=== PATIENT | female | born 1995 | race Caucasian/White ===

== ENCOUNTER 2017-05-17 14:37 | Emergency (ER) | payer BC ==
[~2017-05-17] VITALS: Ht 152.4 cm; Wt 49.7 kg
[2017-05-17 14:39] VITALS: TEMP 36.7; Ht 152.4 cm; Wt 49.7 kg
--- NOTE | 2017-05-17 15:05 | EMERGENCY ROOM VISIT NOTE ---
History Report prepared by Jonathan: Last Junior Under the Supervision of: Dr. Pedro Brown D.O. First contact with patient: 14:47 Chief Complaint: OTHER COMPLAINT Stated Complaint: PAIN DURING SEX, MISSED PERIOD 2 MTHS, ABN BLEEDIN History of Present Illness The patient is a 21 year old female who presents to the Emergency Room with complaints of pelvic pain that began 2 weeks ago. She has a past medical history of kidney stones. She has been noticing this pain that begins during and after intercourse. Two days ago, she had her latest round of intercourse and her pain worsened and began radiating into her lower back. Her pain does not worsen with exertion or movement. She notes that she has not had her period for 2 months, but she got an irregular period yesterday morning. She denies any fever, nausea, vomiting, diarrhea, rectal bleeding, or hematuria. Today, she saw an SHEET METAL SUPERINTENDENT who examined her and gave her a full gynecologic workup. They gave her blood tests, urine tests, and a pelvic examination that looked normal. However, she was in pain during the pelvic exam. They said they ruled out everything gynecologic and thought it could be a kidney stone. They then sent her to the ER. She is currently taking control and is using condoms. Her only surgical procedure was a lithotripsy for a kidney stone. The last time she had anything to eat or drink was 2 hours ago. Source of History: patient Onset: 2 weeks ago Position: other (Pelvic) Symptom Intensity: moderate Quality: ache Timing: constant Modifying Factors (Worsening): other ([place]) Associated Symptoms: + back pain, No fevers, No nausea, No vomiting, No hematochezia, No diarrhea, No urinary symptoms Review of Systems See HPI for pertinent positives & negatives. A total of 10 systems reviewed and were otherwise negative. Past Medical & Surgical Surgical Problems: (1) History of lithotripsy (2) Kidney stone Family History Kidney stones Social History Smoking Status: Current Every Day Smoker Smokeless Tobacco Use: No Drug Use: none Marital Status: single Occupation Status: student Current/Historical Medications Scheduled Norethin Acet & Estrad-Fe (Loestrin Fe 07/21), 1 TAB PO DAILY Allergies Coded Allergies: No Known Allergies (Verified , 05/17/17) Physical Exam Vital Signs Date Time Temp Pulse Resp B/P (MAP) Pulse Ox O2 Delivery O2 Flow Rate FiO2 05/17/17 17:52 70 18 102/54 98 05/17/17 16:06 76 18 103/58 98 Room Air 05/17/17 15:20 80 05/17/17 14:39 36.7 94 16 114/75 97 Room Air Physical Exam GENERAL: Patient is awake, alert, and in no acute distress. Patient is resting comfortably and showing no signs of anxiety EYES: The conjunctivae are clear. The pupils are round and reactive. EARS, NOSE, MOUTH AND THROAT: The nose is without any evidence of any deformity. Mucous membranes are moist tongue is midline NECK: The neck is nontender and supple. RESPIRATORY: Normal respiratory effort is noted there is no evidence of wheezing rhonchi or rales CARDIOVASCULAR: Regular rate and rhythm noted there no murmurs rubs or gallops normal S1 normal S2 GASTROINTESTINAL: The abdomen is soft and nondistended. Bowel sounds are present in all quadrants. There is bilateral suprapubic tenderness to palpation. No guarding or rigidity appreciated. MUSCULOSKELETAL/EXTREMITIES: There is no evidence of gross deformity full range of motion is noted in the hips and shoulders SKIN: There is no obvious evidence of any rash. There are no petechiae, pallor or cyanosis noted. NEUROLOGIC: Patient is awake alert and oriented x3. Medical Decision & Procedures ER Provider Diagnostic Interpretation: Radiology results as stated below per my review and radiologist interpretation: ABDOMEN AND PELVIS CT WITH IV AND ORAL CONTRAST CT DOSE: 249.14 mGy.cm HISTORY: lower abdominal pain, sent by SHEET METAL SUPERINTENDENT for CT TECHNIQUE: Multiaxial CT images of the abdomen and pelvis were performed following the use of intravenous and oral contrast. A dose lowering technique was utilized adhering to the principles of ALARA. COMPARISON STUDY: Abdominal ultrasound 01/23/2014. FINDINGS: The lung bases are clear. No pneumoperitoneum. No pneumatosis. The liver, spleen, gallbladder, adrenal glands, and pancreas are unremarkable. No retroperitoneal lymphadenopathy. There are few small bilateral renal calculi. Dominant stone within the left kidney measures 4 mm. No hydronephrosis. A 1.3 cm hypodense lesion within the upper pole the right kidney. This was demonstrated to be a cyst on the prior ultrasound. Normal bladder, uterus, and ovaries. The visualized appendix within the right lower quadrant appears to be normal in caliber. This measures up to 5 mm. No bowel wall thickening or obstruction. IMPRESSION: 1. No bowel wall thickening or obstruction. 2. Normal appendix. 3. Bilateral nephrolithiasis. No hydronephrosis. Electronically signed by: Grant Frederick M.D. 05/17/2017 5:37 PM Dictated Date/Time: 05/17/2017 5:25 PM Laboratory Results 05/17/17 15:00 Red Blood Count 4.07, Mean Corpuscular Volume 92.6, Mean Corpuscular Hemoglobin 30.2, Mean Corpuscular Hemoglobin Concent 32.6, Mean Platelet Volume 11.2, Neutrophils (%) (Auto) 57.1, Lymphocytes (%) (Auto) 36.4, Monocytes (%) (Auto) 4.6, Eosinophils (%) (Auto) 1.4, Basophils (%) (Auto) 0.3, Neutrophils # (Auto) 3.62, Lymphocytes # (Auto) 2.31, Monocytes # (Auto) 0.29, Eosinophils # (Auto) 0.09, Basophils # (Auto) 0.02 05/17/17 15:00 Test 05/17/17 15:00 White Blood Count 6.34 K/uL (4.8-10.8) Red Blood Count 4.07 M/uL (4.2-5.4) Hemoglobin 12.3 g/dL (12.0-16.0) Hematocrit 37.7 % (37-47) Mean Corpuscular Volume 92.6 fL (80-100) Mean Corpuscular Hemoglobin 30.2 pg (25-34) Mean Corpuscular Hemoglobin Concent 32.6 g/dl (32-36) Platelet Count 175 K/uL (130-400) Mean Platelet Volume 11.2 fL (7.4-10.4) Neutrophils (%) (Auto) 57.1 % Lymphocytes (%) (Auto) 36.4 % Monocytes (%) (Auto) 4.6 % Eosinophils (%) (Auto) 1.4 % Basophils (%) (Auto) 0.3 % Neutrophils # (Auto) 3.62 K/uL (1.4-6.5) Lymphocytes # (Auto) 2.31 K/uL (1.2-3.4) Monocytes # (Auto) 0.29 K/uL (0.11-0.59) Eosinophils # (Auto) 0.09 K/uL (0-0.5) Basophils # (Auto) 0.02 K/uL (0-0.2) RDW Standard Deviation 43.0 fL (36.4-46.3) RDW Coefficient of Variation 12.6 % (11.5-14.5) Immature Granulocyte % (Auto) 0.2 % Immature Granulocyte # (Auto) 0.01 K/uL (0.00-0.02) Urine Color YELLOW Urine Appearance CLEAR (CLEAR) Urine pH 7.0 (4.5-7.5) Urine Specific [place] 1.016 (1.000-1.030) Urine Protein NEG (NEG) Urine Glucose (UA) NEG (NEG) Urine Ketones NEG (NEG) Urine Occult Blood 2+ (NEG) Urine Nitrite NEG (NEG) Urine Bilirubin NEG (NEG) Urine Urobilinogen NEG (NEG) Urine Leukocyte Esterase TRACE (NEG) Urine WBC (Auto) 5-10 /hpf (0-5) Urine RBC (Auto) 5-10 /hpf (0-4) Urine Hyaline Casts (Auto) 1-5 /lpf (0-5) Urine Epithelial Cells (Auto) >30 /lpf (0-5) Urine Bacteria (Auto) 1+ (NEG) Anion Gap 9.0 mmol/L (3-11) Est Creatinine Clear Calc Drug Dose 91.3 ml/min Estimated GFR () 143.5 Estimated GFR (Non- 123.9 BUN/Creatinine Ratio 8.7 (10-20) Calcium Level 8.7 mg/dl (8.5-10.1) Total Bilirubin 0.7 mg/dl (0.2-1) Direct Bilirubin 0.2 mg/dl (0-0.2) Aspartate Amino Transf (AST/SGOT) 15 U/L (15-37) Alanine Aminotransferase (ALT/SGPT) 22 U/L (12-78) Alkaline Phosphatase 42 U/L (45-117) Total Protein 7.1 gm/dl (6.4-8.2) Albumin 3.6 gm/dl (3.4-5.0) Lipase 284 U/L (73-393) Human Chorionic Gonadotropin, Qual NEG (NEG) Laboratory results per my review. ED Course 1447: The patient was evaluated in room B4B. A complete history and physical examination were performed. 1745: Upon reevaluation, the patient is resting. I discussed the results and treatment plan with her. She verbalized agreement of the treatment plan. She was discharged home. Medical Decision Differential diagnosis: Etiologies such as appendicitis, diverticulitis, PUD, biliary pathology, UTI, pancreatitis, obstruction, mesenteric ischemia, aortic pathology, infections, inflammatory bowel disease, renal colic, as well as others were entertained. Nursing notes reviewed. Additional history is obtained from the patient's mother. The patient is a 21-year-old female who was sent to the emergency department by her SHEET METAL SUPERINTENDENT physician for possible appendicitis. The patient has had ongoing lower pelvic pain and pain with sexual intercourse. She had a workup at the OB/ PATIENT AMBASSADOR physician's office today. She was sent to the emergency department for possible appendicitis. The patient did not have a physical exam consistent with an acute surgical abdomen. I discussed the patient's laboratory and radiographic studies with her and her mother. The patient's mother states that she was called by the SHEET METAL SUPERINTENDENT physician at the end of the workup in the emergency department and told that she would likely be started on antibiotic for presumed urinary tract infection. She was encouraged to continue all medications as prescribed and drink plenty clear liquids. Otherwise she was encouraged to follow-up with her family doctor for further evaluation but return to the emergency department immediately if symptoms change worsen or the need arises. Medication Reconcilliation Current Medication List: was personally reviewed by me Blood Pressure Screening Patient's blood pressure: Normal blood pressure Blood pressure disposition: Did not require urgent referral Impression Primary Impression: Pelvic pain Scribe Attestation The scribe's documentation has been prepared under my direction and personally reviewed by me in its entirety. I confirm that the note above accurately reflects all work, treatment, procedures, and medical decision making performed by me. Departure Information Dispostion Home / Self-Care Referrals No Doctor, Assigned (PCP) Forms HOME CARE DOCUMENTATION FORM, IMPORTANT VISIT INFORMATION, WORK / SCHOOL INSTRUCTIONS, Work Instructions Patient Instructions ED Pelvic Pain Carlotta VANG [facility] Additional Instructions Call your family to schedule a follow-up appointment. Drink plenty clear liquids. Continue using Motrin and Tylenol for pain.
[2017-05-17 15:15] LABS: BASO % 0.3 %; BASO ABS # 0.02 K/uL (0-0.2); COMPLETE YES; EOS % 1.4 %; HEMATOCRIT 37.7 % (37-47); IG% 0.2 %; LYMPH % 36.4 %; LYMPH ABS # 2.31 K/uL (1.2-3.4); MEAN CELL VOLUME 92.6 fL (80-100); MEAN CORPUSCULAR HEMOGLOBIN 30.2 pg (25-34); MEAN CORPUSCULAR HGB CONC 32.6 g/dl (32-36); MEAN PLATELET VOLUME 11.2 fL (7.4-10.4); MONO % 4.6 %; NEUT % 57.1 %; PLATELET COUNT 175 K/uL (130-400); RED BLOOD COUNT 4.07 M/uL (4.2-5.4); WHITE BLOOD COUNT 6.34 K/uL (4.8-10.8)
[2017-05-17] MEDS ORDERED: OPTIRAY 320 IV PRN (15:15)
[2017-05-17 15:20] LABS: URINE APPEARANCE CLEAR (CLEAR); URINE BILIRUBIN NEG (NEG); URINE COLOR YELLOW; URINE EPITHELIAL CELL AUTO >30 /lpf (0-5); URINE NITRITE NEG (NEG); URINE SPECIFIC GRAVITY 1.016 (1.000-1.030); UROBILINOGEN NEG (NEG)
[2017-05-17 15:26] LABS: MANUAL MICROSCOPIC REQUIRED? NO; REVIEW REQ? NO
[2017-05-17 15:32] LABS: BUN/CREATININE RATIO 8.7 (10-20); CALCIUM 8.7 mg/dl (8.5-10.1); CREATININE 0.7 mg/dl (0.60-1.20); POTASSIUM 3.5 mmol/L (3.5-5.1)
[2017-05-17 15:53] LABS: PREG INTERNAL NEGATIVE QC NEG CLEAR BACKGROUND; PREG INTERNAL POSITIVE QC POS CONTROL LINE
--- NOTE | 2017-05-17 17:38 | DIAGNOSTIC IMAGING REPORT ---
ABDOMEN AND PELVIS CT WITH IV AND ORAL CONTRAST CT DOSE: 249.14 mGy.cm HISTORY: lower abdominal pain, sent by PI/SENIOR RESEARCH ASSOCIATE for CT TECHNIQUE: Multiaxial CT images of the abdomen and pelvis were performed following the use of intravenous and oral contrast. A dose lowering technique was utilized adhering to the principles of ALARA. COMPARISON STUDY: Abdominal ultrasound 01/23/2014. FINDINGS: The lung bases are clear. No pneumoperitoneum. No pneumatosis. The liver, spleen, gallbladder, adrenal glands, and pancreas are unremarkable. No retroperitoneal lymphadenopathy. There are few small bilateral renal calculi. Dominant stone within the left kidney measures 4 mm. No hydronephrosis. A 1.3 cm hypodense lesion within the upper pole the right kidney. This was demonstrated to be a cyst on the prior ultrasound. Normal bladder, uterus, and ovaries. The visualized appendix within the right lower quadrant appears to be normal in caliber. This measures up to 5 mm. No bowel wall thickening or obstruction. IMPRESSION: 1. No bowel wall thickening or obstruction. 2. Normal appendix. 3. Bilateral nephrolithiasis. No hydronephrosis. Electronically signed by: Grant Frederick M.D. 05/17/2017 5:37 PM Dictated Date/Time: 05/17/2017 5:25 PM
[2017-05-17 17:52] VITALS: BP 102/54; PULSE 70; O2SAT 98
== END 2017-05-17 17:53 | disposition home or self-care (01) ==
LOC: C.EDB 14:40
DX: R10.2 Pelvic and perineal pain (principal); F17.200 Nicotine dependence, unspecified, uncomplicated; Z87.442 Personal history of urinary calculi; Z98.890 Other specified postprocedural states; Z84.1 Family history of disorders of kidney and ureter

== ENCOUNTER → 2017-05-17 | Outpatient (CLI) | payer BC ==
[~2017-05-17] MED LIST: NORE-37 PO; PRLSR20 PO
[2017-05-17 14:45] LABS: BASO % 0.3 %; BASO ABS # 0.02 K/uL (0-0.2); COMPLETE YES; EOS % 1.5 %; HEMATOCRIT 37.6 % (37-47); IG% 0.2 %; LYMPH % 33.9 %; MEAN CELL VOLUME 93.5 fL (80-100); MEAN CORPUSCULAR HEMOGLOBIN 30.6 pg (25-34); MEAN CORPUSCULAR HGB CONC 32.7 g/dl (32-36); MEAN PLATELET VOLUME 11.7 fL (7.4-10.4); MONO % 4.7 %; NEUT % 59.4 %; PLATELET COUNT 176 K/uL (130-400); RED BLOOD COUNT 4.02 M/uL (4.2-5.4); WHITE BLOOD COUNT 6.19 K/uL (4.8-10.8)
[2017-05-17 16:32] LABS: URINE APPEARANCE CLEAR (CLEAR); URINE BILIRUBIN NEG (NEG); URINE COLOR YELLOW; URINE EPITHELIAL CELL AUTO >30 /lpf (0-5); URINE NITRITE NEG (NEG); URINE SPECIFIC GRAVITY 1.017 (1.000-1.030); UROBILINOGEN NEG (NEG)
[2017-05-17 16:34] LABS: MANUAL MICROSCOPIC REQUIRED? NO; REVIEW REQ? NO
[2017-05-21 10:27] LABS: CHLAMYDIA TRACH RNA*** NOT DETECTED (NOT DETECTED); GC (NEIS GONORRHOEAE)RNA** NOT DETECTED (NOT DETECTED)
== END | disposition home or self-care (01) ==
LOC: C.LAB1850 12:50
PROVIDERS: ATTEND Physician Assistant
DX: R10.2 Pelvic and perineal pain (principal)

== ENCOUNTER → 2017-06-01 | Outpatient (CLI) | payer BC ==
[~2017-06-01] MED LIST changes: -PRLSR20 PO
[2017-06-04 07:21] LABS: CHLAMYDIA TRACH RNA*** NOT DETECTED (NOT DETECTED); GC (NEIS GONORRHOEAE)RNA** NOT DETECTED (NOT DETECTED)
== END | disposition home or self-care (01) ==
LOC: C.LABSPEC 17:51
PROVIDERS: ATTEND Physician Assistant
DX: Z01.419 Encounter for gynecological examination (general) (routine) without abnormal findings (principal)

== ENCOUNTER → 2017-06-04 | Outpatient (CLI) | payer BC | END | disposition home or self-care (01) | LOC: C.PAPS 09:33 | PROVIDERS: ATTEND Physician Assistant | DX: Z12.4 Encounter for screening for malignant neoplasm of cervix (principal) ==